=== PATIENT | female | born 1990 | race Caucasian/White ===

== ENCOUNTER → 2017-06-24 | Outpatient (CLI) | payer OTHER ==
[~2017-06-24] MED LIST: COLACE PO; FLAGYL PO; FLEXERIL10 MG PO; IBUPROFEN800 MG PO; LORTAB 5/500 TA1 TA1 PO
--- NOTE | ~2017-06-24 | US128 ---
[id number] [facility] [address] [place], [place] [address] [id number] O MR#: [id number] Acc #: [id number] NAME: TAE ALMANZA : 1990 SEX: F STUDY DATE/TIME: 06/24/2017 13:24 UNIT: [facility]US ROOM: STUDY DESCRIPTION: Thyroid Attending Physician: Melony Card M.D. Referring Physician: Melony Card M.D. Ordering Physician: Melony Card M.D. Primary Care Physician: Melony Card M.D. MEDICAL IMAGING REPORT This report is preliminary unless electronic signature is present EXAM Thyroid ultrasound 06/24/2017 HISTORY History is enlarged thyroid on physical examination 2 weeks ago. Throat discomfort, difficulty swallowing for 3 years. FINDINGS The right thyroid lobe measured 2 x 1 cm x 4.9 cm x 1.3 cm while the left lobe measured 1.8 cm x 4.9 cm x 1.1 cm. The isthmus measured 2 mm in the AP direction. Both thyroid lobes are homogeneous in echotexture and demonstrate no cystic or solid mass lesions. There are no masses extrinsic to the thyroid. Normal blood flow is seen throughout both thyroid lobes. IMPRESSION Negative thyroid ultrasound. Dictated by... Mann Giron M.D. THIS IS AN ELECTRONICALLY VERIFIED REPORT Mann Giron M.D. at 06/25/2017 2:06 PM Matthew TD: 06/24/2017 18:08 JOB #: [id number] MEDICAL IMAGING REPORT Page 1 of 1 COPY
== END | disposition home or self-care (01) ==
LOC: CGUS 13:01
DX: M54.2 Cervicalgia (principal)
CPT/HCPCS: 76536